=== PATIENT | female | born 2000 | race Caucasian/White ===

== ENCOUNTER 2021-02-26 20:19 | Emergency (ER) | payer OTHER ==
[2021-02-26 22:53] LABS: BUN/CREATININE RATIO 15 (0-10)
== END 2021-02-27 00:37 | disposition home or self-care (01) ==
LOC: ER1 20:19
PROVIDERS: Physician Assistant
DX: J06.9 Acute upper respiratory infection, unspecified (principal); M41.9 Scoliosis, unspecified; Z20.822 Contact with and (suspected) exposure to COVID-19; F17.290 Nicotine dependence, other tobacco product, uncomplicated
CPT/HCPCS: 71045; 80048; 85379; 99283; U0002

== ENCOUNTER 2021-03-23 17:59 | Emergency (ER) | payer OTHER ==
[2021-03-23 18:37] LABS: HEMOGLOBIN 13.2 gm/dl (12.3-15.3); RED BLOOD COUNT 4.49 M/UL (4.00-5.10); WHITE BLOOD COUNT 4.1 K/UL (4.5-11.0)
[2021-03-23 18:53] LABS: BUN/CREATININE RATIO 12 (0-10)
[2021-03-23] MEDS ORDERED: OMNICEF 300 MG300 MG PO (22:12)
[2021-03-23] MEDS ORDERED: DIFLUCAN150 MG PO (22:12)
[2021-03-23] MEDS ORDERED: ZOFRAN4 MG PO (22:12)
[2021-03-25 09:13] LABS: HBSAG SCREEN Negative (Negative); HEP A AB, IGM Negative (Negative); HEP B CORE AB, IGM Negative (Negative); HEP C VIRUS AB <0.1 (0.0-0.9)
== END 2021-03-23 23:00 | disposition home or self-care (01) ==
LOC: ER1 17:59
PROVIDERS: Physician Assistant; Physician Assistant Medical
DX: N12 Tubulo-interstitial nephritis, not specified as acute or chronic (principal); F17.290 Nicotine dependence, other tobacco product, uncomplicated; Z20.822 Contact with and (suspected) exposure to COVID-19
CPT/HCPCS: 80053; 80074; 81001; 84703; 85025; 85610; 85730; 87086; 96374; 96375; 99284; J2270; J2405; Q9967; U0002

== ENCOUNTER 2021-03-28 01:05 | Emergency (ER) | payer OTHER ==
[~2021-03-28 01:05] MED LIST: DIFLUCAN150 MG PO; OMNICEF 300 MG300 MG PO; ZOFRAN4 MG PO
[2021-03-28 02:23] LABS: HEMOGLOBIN 12.5 gm/dl (12.3-15.3); RED BLOOD COUNT 4.23 M/UL (4.00-5.10); WHITE BLOOD COUNT 8.8 K/UL (4.5-11.0)
[2021-03-28 02:42] LABS: BUN/CREATININE RATIO 7 (0-10)
[2021-03-28] MEDS ORDERED: ZOFRAN4 MG PO (10:19)
== END 2021-03-28 10:48 | disposition home or self-care (01) ==
LOC: ER1 01:05
PROVIDERS: Physician Assistant
DX: B27.90 Infectious mononucleosis, unspecified without complication (principal)
CPT/HCPCS: 76705; 76830; 80053; 81001; 83690; 84703; 85025; 86403; 87086; 96374; 96375; 96376; 99284; J1170; J1885; J2270; J2405; Q9967

== ENCOUNTER → 2021-04-18 | Outpatient (CLI) | payer OTHER | LOC: NM 10:11 | DX: R10.11 Right upper quadrant pain (principal); K59.00 Constipation, unspecified | CPT/HCPCS: 78226; A9537 ==

== ENCOUNTER → 2021-06-13 | Outpatient (CLI) | payer OTHER | LOC: EXRD 10:07 | DX: R16.1 Splenomegaly, not elsewhere classified (principal) | CPT/HCPCS: 76705 ==

== ENCOUNTER → 2021-06-25 | Day surgery (SDC) | payer OTHER ==
[~2021-06-25] MED LIST changes: +MONTELUKAST SOD10 MG PO; +TRAZODONE HCL100 MG PO; +VRAYLAR4.5 MG PO; +ZYRTEC10 M3 PO
== END | disposition home or self-care (01) ==
LOC: OR 06:45
DX: K31.9 Disease of stomach and duodenum, unspecified (principal); K29.70 Gastritis, unspecified, without bleeding; K25.9 Gastric ulcer, unspecified as acute or chronic, without hemorrhage or perforation; K20.90 Esophagitis, unspecified without bleeding; R94.5 Abnormal results of liver function studies; R68.81 Early satiety; R16.1 Splenomegaly, not elsewhere classified; E66.3 Overweight; F41.9 Anxiety disorder, unspecified; F31.9 Bipolar disorder, unspecified; K21.9 Gastro-esophageal reflux disease without esophagitis; F17.200 Nicotine dependence, unspecified, uncomplicated; Z68.25 Body mass index [BMI] 25.0-25.9, adult; Z79.899 Other long term (current) drug therapy; Z20.822 Contact with and (suspected) exposure to COVID-19
CPT/HCPCS: 84703; J2001; J2704; J7040; U0002

== ENCOUNTER → 2022-02-27 | Outpatient (CLI) | payer OTHER | LOC: NM 02-25 13:00 | DX: R10.11 Right upper quadrant pain (principal); R11.0 Nausea; R19.7 Diarrhea, unspecified | CPT/HCPCS: 78226; A9537 ==